=== PATIENT | female | born 1940 | race Caucasian/White ===

== ENCOUNTER → 2019-05-10 | Outpatient (CLI) | payer MEDICARE, OTHER | END | disposition home or self-care (01) | LOC: LABWHC1 10:23 | PROVIDERS: ATTEND Thoracic Surgery (Cardiothoracic Vascular Surgery) | DX: Z53.9 Procedure and treatment not carried out, unspecified reason (principal) ==

== ENCOUNTER 2019-05-17 11:22 | Inpatient (IN) | payer MEDICARE, OTHER ==
--- NOTE | 2019-05-17 16:30 | HP ---
HISTORY AND PHYSICAL CHIEF COMPLAINT: Open sacral wound. HISTORY OF PRESENT ILLNESS: This is another admission for this 78-year-old white female who has chronic debility. She uses an electric scooter wheelchair all the time. She has a history of COPD, hypertension, asthma. She recently underwent a surgical procedure for lesion over the sacrum. It has broken open and she has been going to wound care. Wound care physician contacted me. It was felt that she should be in the hospital for intensive wound care, reevaluation by Surgery and Infectious Disease. REVIEW OF SYSTEMS: She has had no fever, chills, nausea, vomiting, etc. Past medical history, family history, personal and social histories reveal that she is ALLERGIC TO CODEINE AND ASPIRIN. MEDICATIONS: Medications include vitamin D, omeprazole, Ventolin HFA, and Vicodin. Surgically she has had tubal ligation and procedure for a right lung abscess. She has never smoked and she does not drink alcohol. PHYSICAL EXAMINATION: Blood pressure is 180/84 with a pulse 104, respirations 20 and temperature 98.9. In general, she appeared to be pale and chronically ill in appearance. Head, ears, eyes, nose, mouth, and throat were normal. Neck veins not distended. Thyroid was not enlarged. Chest is clear. Breath sounds are diminished due to her emphysema. Cardiac exam demonstrated normal sinus rhythm with no murmurs or extra sounds. Abdomen is soft and there are no masses. Extremities: Normal. Sacral wound was not evaluated at this time and will be seen by wound management Infectious Disease MMODL / IJN: [id number] /
--- NOTE | 2019-05-17 18:16 | XR ---
EXAMINATION TYPE: XR chest 2V DATE OF EXAM: 05/17/2019 COMPARISON: 03/13/2016 HISTORY: Short of breath TECHNIQUE: Frontal and lateral views of the chest are obtained. FINDINGS: There is shift of heart and mediastinum to the right side. There is significant opacificat ion right hemithorax. Left lung is clear. There is no heart failure. IMPRESSION: There is progressive consolidation and pleural thickening and volume loss in the right h emithorax compared to old exam. No heart failure. Right bronchial obstruction is possible.
[2019-05-17] MEDS: HYDROcodone/APAP 5-325MG 1 EACH TAB PO PRN (19:45)
[2019-05-17 19:54] LABS: Basophils % (A) 0 %; Eosinophils # (A) 0.2 k/uL (0-0.7); Eosinophils % (A) 2 %; HGB 9.8 gm/dL (11.4-16.0); Hypochromasia Moderate; Lymphocytes # (A) 1.6 k/uL (1.0-4.8); Lymphocytes % (A) 20 %; MCH 24.5 pg (25.0-35.0); MCV 84.6 fL (80.0-100.0); Mean Platelet Volume 7.3; Monocytes # (A) 0.4 k/uL (0-1.0); Monocytes % (A) 5 %; Neutrophils # (A) 5.7 k/uL (1.3-7.7); Neutrophils % (A) 72 %; Platelet Count 294 k/uL (150-450); RBC 4.02 m/uL (3.80-5.40); RDW 15.5 % (11.5-15.5)
[2019-05-17] MEDS ORDERED: ALBUTEROL NEBULIZED 2.5 MG/3 ML INHALATION PRN (20:04)
[2019-05-17 20:19] LABS: ALT <6 U/L (9-52); AST 10 U/L (14-36); African American GFR (CKD) 61 (>60 ml/min/1.73 sqM); Albumin 3.5 g/dL (3.5-5.0); Alkaline Phosphatase 251 U/L (38-126); Anion Gap 8 mmol/L; Blood Urea Nitrogen 28 mg/dL (7-17); Calcium 9.8 mg/dL (8.4-10.2); Carbon Dioxide 21 mmol/L (22-30); Chloride 112 mmol/L (98-107); Glucose 105 mg/dL (74-99); Potassium 3.8 mmol/L (3.5-5.1); Sodium 141 mmol/L (137-145); Total Bilirubin 0.2 mg/dL (0.2-1.3); Total Protein 6.8 g/dL (6.3-8.2)
[2019-05-17] MEDS: ALBUTEROL NEBULIZED 2.5 MG/3 ML INHALATION SCH (21:15)
[2019-05-18 04:14] LABS: Hemoglobin A1C 5.8 % (4.0-6.0)
[2019-05-18] MEDS: HYDROcodone/APAP 5-325MG 1 EACH TAB PO PRN ×2 (04:43→16:22)
[2019-05-18] MEDS: ALBUTEROL NEBULIZED 2.5 MG/3 ML INHALATION SCH ×4 (08:28→20:51)
--- NOTE | 2019-05-18 08:45 | P.CON ---
Consult Note - . Consult date: 05/18/19 Assessment/Plan:: This is a 78-year-old pleasant female who is a known patient to the wound care center. Patient was initially seen on 05/10/2019 for a presacral wound dehiscence. Patient had a lesion removed from her presacral area. Patient lives on her own and utilizes a electronic wheelchair, in the process of transferring and sliding across the wound completely dehisced. Patient has been treated with a wound VAC and has had home care assisting her. However due to her debility and living alone she is unable to manage keeping the wound VAC in place. Patient often slides across for transfers dislodging the wound VAC. Even with home care for dressing changes patient is unable to maintain wound VAC on her own. Patient presented to the wound care center yesterday 05/17/2019 with the wound VAC out of place, increased redness and maceration to the site related to cellulitic changes. Culture obtained of the wound. Dressing change to absorptive Silver. Case discussed with Dr. Cole for possible ECF placement to assist with maintaining wound VAC. Review Of Systems: Constitutional: No fever, no chills, no night sweats. No weight change. Report weakness, reports fatigue no lethargy. Report daytime sleepiness. Musculoskeletal: No myalgias. Report muscle weakness, reports gait dysfunction utilizes electric scooter, no frequent falls. Reports back pain. No neck pain. Integumentary: Reports wounds, report lesions. No rash or pruritus. No unusual bruising. No change in hair or nails. Psychiatric: Reports depression. No anxiety. No mood swings. General Appearance: Alert, cooperative, no distress, appears older stated age. Extremities: Extremities normal, atraumatic, no cyanosis or edema. Pulses: 2+ and symmetric. Skin: Full thickness without exposed support structures wound to the etiology of dehisced wound an open surgical wound is located right medial gluteus. Wound measures approximately 5.7 x 2.5 x 1.7 cm fatty layer exposure. No tunneling or undermining noted. A small amount of serosanguineous drainage noted. Periwound skin appears macerated tenderness to palpation Assessment/plan: 1. Disruption of external operation surgical wound. Absorptive silver dressing to the site change Wednesday. Overlay mattress. Turn every 2 hours. No weight to site. Wound culture performed 05/17/2019 in the wound care center. Possible ECF placement for assistance with wound VAC due to debility and home situation. 2. 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 As noted above. Thank you for the consult. Any questions or concerns please contact the wound c are center. DNP note has been reviewed and discussed with Dr. Knox and the impression and plan of care has been directed as dictated.
[2019-05-18] MEDS ORDERED: ALPRAZolam 0.25 MG TAB PO PRN (14:02)
--- NOTE | 2019-05-18 18:45 | P.PN ---
Subjective This is a pleasant 78 is old female with past medical history of asthma, GERD, hypertension, pneumonia. Patient presents with failing outpatient therapy for her presacral wound, patient has been follow-up with the wound clinic since 05/10/2019 for her presacral wound secondary to lesion removed by her doctor. However patient could not keep the wound VAC in a Place. Vitals are stable and patient is afebrile. Labs including CBC, BMP and liver enzymes were unremarkable. pt today agrees to go to rehab to finish her therapy and wound care Objective - Vital Signs Vital signs: Vital Signs Temp 97.6 F 05/18/19 11:56 Pulse 86 05/18/19 17:30 Resp 17 05/18/19 16:00 BP 146/61 05/18/19 11:56 Pulse Ox 100 05/18/19 11:56 Intake & Output 05/17/19 05/18/19 05/18/19 18:59 06:59 18:59 Intake Total 600 1000 580 Balance 600 1000 580 Weight 175 kg 79.379 kg Intake: Oral 600 1000 580 Other: Voiding Method Diaper Diaper Diaper Incontinent Incontinent Incontinent # Voids 2 1 - Exam GENERAL: The patient is alert and oriented x3, not in any acute distress. Well developed, well nourished. HEENT: Pupils are round and equally reacting to light. EOMI. No scleral icterus. No conjunctival pallor. Normocephalic, atraumatic. No pharyngeal erythema. No thyromegaly. CARDIOVASCULAR: S1 and S2 present. No murmurs, rubs, or gallops. PULMONARY: Chest is clear to auscultation, no wheezing or crackles. ABDOMEN: Soft, nontender, nondistended, normoactive bowel sounds. No palpable organomegaly. MUSCULOSKELETAL: No joint swelling or deformity. EXTREMITIES: No cyanosis, clubbing, or pedal edema. -back: lower back with deep wound with minimal surrounding cellulitis , no purulent discharge .dressing is in place NEUROLOGICAL: Gross neurological examination did not reveal any focal deficits. SKIN: No rashes - Labs CBC & Chem 7: 05/17/19 19:01 05/17/19 19:01 Labs: Abnormal Lab Results - Last 24 Hours (Table) 05/17/19 05/17/19 Range/Units 19: 19:01 Hgb 9.8 L (11.4-16.0) gm/dL MCH 24.5 L (25.0-35.0) pg MCHC 29.0 L (31.0-37.0) g/dL Chloride 112 H (98-107) mmol/L Carbon Dioxide 21 L (22-30) mmol/L BUN 28 H (7-17) mg/dL Glucose 105 H (74-99) mg/dL AST 10 L (14-36) U/L ALT <6 L (9-52) U/L Alkaline Phosphatase 251 H (38-126) U/L Assessment and Plan Assessment: Presacral wound, failed outpatient therapy Chronic kidney disease, stage III Application GERD History of asthma, not an active issue Plan: This is a pleasant 78 years old female who presents with wound dehiscence. Want team consult is appreciated. They recommended ECF placement for wound care. Infectious disease consult is called Labs and medication were reviewed.. Continue same treatment. Continue with symptomatic treatment. Resume home medication. Monitor lytes and vitals. DVT and GI prophylaxis. Further recommendations of the clinical course of the patient DVT prophylaxis: Subcutaneous heparin GI Prophylaxis: Pepcid PT/OT: Pending Prognosis is guarded
[2019-05-19] MEDS: HYDROcodone/APAP 5-325MG 1 EACH TAB PO PRN ×2 (00:43→22:09)
[2019-05-19] MEDS: ALBUTEROL NEBULIZED 2.5 MG/3 ML INHALATION SCH ×4 (08:12→21:27)
[2019-05-19 19:55] LABS: Glucose,Whole Blood 148 mg/dL (75-99)
--- NOTE | 2019-05-19 20:02 | P.PN ---
Subjective This is a pleasant 78 is old female with past medical history of asthma, GERD, hypertension, pneumonia. Patient presents with failing outpatient therapy for her presacral wound, patient has been follow-up with the wound clinic since 05/10/2019 for her presacral wound secondary to lesion removed by her doctor. However patient could not keep the wound VAC in a Place. Vitals are stable and patient is afebrile. Labs including CBC, BMP and liver enzymes were unremarkable. pt today agrees to go to rehab to finish her therapy and wound care 05/19/2019 pt is resting comfortably in bed , not in pain or distress. she has still large ulcer about 3 inches , pt pain is controlled . no diarrhea, she denies chest pain or dyspnea . infectious disease are consulted . she is slightly tachycardic . we will repeat labs today . Objective - Vital Signs Vital signs: Vital Signs Temp 97.8 F 05/19/19 11:53 Pulse 90 05/19/19 16:45 Resp 17 05/19/19 11:53 BP 125/64 05/19/19 11:53 Pulse Ox 99 05/19/19 11:53 Intake & Output 05/19/19 05/19/19 05/20/19 06:59 18:59 06:59 Intake Total 120 Balance 120 Weight 79.379 kg Intake: Oral 120 Other: Voiding Method Diaper Diaper Incontinent Incontinent # Voids 2 - Exam GENERAL: The patient is alert and oriented x3, not in any acute distress. Well developed, well nourished. HEENT: Pupils are round and equally reacting to light. EOMI. No scleral icterus. No conjunctival pallor. Normocephalic, atraumatic. No pharyngeal erythema. No thyromegaly. CARDIOVASCULAR: S1 and S2 present. No murmurs, rubs, or gallops. PULMONARY: Chest is clear to auscultation, no wheezing or crackles. ABDOMEN: Soft, nontender, nondistended, normoactive bowel sounds. No palpable organomegaly. MUSCULOSKELETAL: No joint swelling or deformity. EXTREMITIES: No cyanosis, clubbing, or pedal edema. -back: Large sacral wound and the lower back about 3 inches in diameter with granulation tissue and no purulent discharge. No surrounding cellulitis. dressing is in place NEUROLOGICAL: Gross neurological examination did not reveal any focal deficits. SKIN: No rashes - Labs CBC & Chem 7: 05/17/19 19:01 05/17/19 19:01 Assessment and Plan Assessment: Presacral wound, failed outpatient therapy Chronic kidney disease, stage III Application GERD History of asthma, not an active issue Plan: This is a pleasant 78 years old female who presents with wound dehiscence. Want team consult is appreciated. They recommended ECF placement for wound care. Infectious disease consult is called Labs and medication were reviewed.. Continue same treatment. Continue with symptomatic treatment. Resume home medication. Monitor lytes and vitals. DVT and GI prophylaxis. Further recommendations of the clinical course of the patient DVT prophylaxis: Subcutaneous heparin GI Prophylaxis: Pepcid PT/OT: Pending Prognosis is guarded
--- NOTE | 2019-05-19 20:16 | CT ---
EXAMINATION TYPE: CT brain wo con for TPA DATE OF EXAM: 05/19/2019 COMPARISON: None HISTORY: Altered mental status. CT DLP: 975.1 mGycm Automated exposure control for dose reduction was used. FINDINGS: There is 4 x 3 cm area of hypodensity in the cortex right posterior parietal lobe. There is 3.5 cm ar ea of cortical hypodensity left anterior parietal lobe. There is no midline shift. There is no sign o f intracranial hemorrhage. The calvarium is intact. 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 THERE IS HYPODENSITY LEFT AN TERIOR PARIETAL LOBE WHICH HAS SLIGHTLY HIGHER ATTENUATION AND CONSISTENT WITH SUBACUTE INFARCT. NO H EMORRHAGE.
[2019-05-19 20:50] VITALS: TEMP 98.2
--- NOTE | 2019-05-19 20:57 | CT ---
EXAMINATION TYPE: CODE STROKE: CTA head neck DATE OF EXAM: 05/19/2019 HISTORY: Altered mental status. COMPARISON: None CT DLP: 292 mGycm. Automated Exposure Control for Dose Reduction was Utilized. TECHNIQUE: CTA scan of the neck is performed with IV Contrast, patient injected with 50ml mL of Isov ue 370, axial images are obtained, coronal and sagittal reformatted images are reviewed. Three-D jose nstructed images are created on an independent workstation and reviewed. FINDINGS: There is extensive airspace infiltrate and air bubbles right upper lobe at the lung apex. Mediastinum is shifted to the right side. There is arterial flow in both subclavian arteries. There is arterial flow in the common internal and external carotid arteries bilaterally. There is calcified plaque at t he carotid artery bifurcations. There is estimated 60% stenosis at the origin of the right internal c arotid artery due to plaque formation. There is arterial flow in both vertebral arteries. There is no evidence of carotid or vertebral artery aneurysm or dissection. There is arterial flow in the vertebrobasilar artery system. There is arterial flow in the anterior m iddle and posterior cerebral arteries. There is cortical hypodensity noted in the right posterior par ietal lobe and left anterior parietal lobe. I see no evidence of intracranial aneurysm or neovascular ity. There is no mass effect. I see no evidence of intracranial arterial stenosis. There is normal co ntrast opacification of the venous sinuses. There is opacification right maxillary sinus noted. IMPRESSION: Atherosclerotic vascular disease with plaque and calcification at the right carotid artery bifurcatio n. There is estimated 60% stenosis of the proximal right internal carotid artery. No evidence of any significant stenosis left internal carotid artery. Negative CT angiogram of the brain. Right upper lobe airspace consolidation and volume loss.
[2019-05-19] MEDS ORDERED: HEPARIN SODIUM,PORCINE 5,000 UNIT/ML 1 ML VIAL SQ SCH (21:00)
[2019-05-19] MEDS ORDERED: FAMOTIDINE 20 MG/2 ML VIAL IV SCH (21:00)
[2019-05-19 21:15] LABS: Basophils % (A) 0 %; Calcium 10.2 mg/dL (8.4-10.2); Eosinophils # (A) 0.1 k/uL (0-0.7); Eosinophils % (A) 2 %; HCT 35.1 % (34.0-46.0); HGB 10.3 gm/dL (11.4-16.0); Hypochromasia Slight; Lymphocytes # (A) 1.4 k/uL (1.0-4.8); Lymphocytes % (A) 15 %; MCH 24.8 pg (25.0-35.0); MCHC 29.4 g/dL (31.0-37.0); MCV 84.2 fL (80.0-100.0); Monocytes # (A) 0.4 k/uL (0-1.0); Monocytes % (A) 4 %; Neutrophils # (A) 7.3 k/uL (1.3-7.7); Neutrophils % (A) 78 %; Platelet Count 275 k/uL (150-450); Potassium 3.9 mmol/L (3.5-5.1); RBC 4.17 m/uL (3.80-5.40); RDW 15.5 % (11.5-15.5); WBC 9.3 k/uL (3.8-10.6)
[2019-05-19 21:16] LABS: INR 1.1 (<1.2); Prothrombin Time 11.4 sec (9.0-12.0)
[2019-05-19] MEDS ORDERED: amLODIPine 5 MG TAB PO SCH (21:45)
[2019-05-19 22:03] VITALS: BP 181/75; PULSE 95; RESP 18
== END 2019-05-19 23:30 | disposition short-term general hospital (02) | DRG 921 ==
LOC: 3NMEDONC 12:39
PROVIDERS: ADMIT Family Medicine; ATTEND Family Medicine
DX: T81.31XA Disruption of external operation (surgical) wound, not elsewhere classified, initial encounter (principal); I12.9 Hypertensive chronic kidney disease with stage 1 through stage 4 chronic kidney disease, or unspecified chronic kidney disease; J44.9 Chronic obstructive pulmonary disease, unspecified; K21.9 Gastro-esophageal reflux disease without esophagitis; N18.3 Chronic kidney disease, stage 3 (moderate); Z60.2 Problems related to living alone; L98.422 Non-pressure chronic ulcer of back with fat layer exposed; Z88.6 Allergy status to analgesic agent; Z88.5 Allergy status to narcotic agent; Y83.8 Other surgical procedures as the cause of abnormal reaction of the patient, or of later complication, without mention of misadventure at the time of the procedure; Z79.891 Long term (current) use of opiate analgesic; Z79.899 Other long term (current) drug therapy
CPT/HCPCS: 70450; 70496; 70498; 71046; 80048; 80053; 83036; 84484; 85025; 85610; 93005; 94640; 94760